=== PATIENT | female | born 1985 | race American Indian/Alaskan Native ===

== ENCOUNTER 2017-04-22 13:22 | Emergency (ER) | payer OTHER, MEDICAID ==
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
[2017-04-22] MEDS ORDERED: MOTRIN PO ONE (18:54)
[2017-04-22 20:43] VITALS: BP 117/82
== END 2017-04-22 19:11 | disposition home or self-care (01) ==
LOC: ED 13:22
DX: S13.4XXA Sprain of ligaments of cervical spine, initial encounter (principal); S39.012A Strain of muscle, fascia and tendon of lower back, initial encounter; F17.210 Nicotine dependence, cigarettes, uncomplicated; V89.2XXA Person injured in unspecified motor-vehicle accident, traffic, initial encounter; Y93.89 Activity, other specified; Y92.89 Other specified places as the place of occurrence of the external cause; Y99.8 Other external cause status
CPT/HCPCS: 99282

== ENCOUNTER 2017-12-09 14:38 | Emergency (ER) | payer MEDICAID, OTHER ==
[2017-12-09 14:47] VITALS: BP 122/86
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
== END 2017-12-09 17:42 | disposition home or self-care (01) ==
LOC: ED 14:38
DX: S39.012A Strain of muscle, fascia and tendon of lower back, initial encounter (principal); S16.1XXA Strain of muscle, fascia and tendon at neck level, initial encounter; V49.49XA Driver injured in collision with other motor vehicles in traffic accident, initial encounter; Y93.89 Activity, other specified; Y92.89 Other specified places as the place of occurrence of the external cause; Y99.8 Other external cause status
CPT/HCPCS: 99282

== ENCOUNTER 2018-09-15 11:39 | Inpatient (IN) | payer MEDICAID ==
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
[2018-09-15 14:15] LABS: Basophils % (Auto) 0.7 % (0.0-1.8); Eosinophils % (Auto) 0.3 % (0.0-4.3); Hematocrit 34.9 % (30.3-42.9); Hemoglobin 10.9 gm/dl (10.1-14.3); Lymphocytes # (Auto) 1.2 K/mm3 (1.2-5.4); Lymphocytes % (Auto) 24.4 % (13.4-35.0); Mean Corpuscular HGB Conc 31 % (30-34); Mean Corpuscular Volume 75 fl (79-97); Monocytes # (Auto) 0.4 K/mm3 (0.0-0.8); Monocytes % (Auto) 7.4 % (0.0-7.3); Red Blood Count 4.68 M/mm3 (3.65-5.03); Red Cell Distribution Width 14.2 % (13.2-15.2)
[2018-09-15 14:21] LABS: Platelet Count 261 K/mm3 (140-440)
[2018-09-15 14:25] LABS: INR 0.96 (0.87-1.13)
[2018-09-15 14:26] LABS: Partial Thromboplastin Time 33.9 Sec. (24.2-36.6)
[2018-09-15 14:36] LABS: Albumin 4.3 g/dL (3.9-5); BUN/Creatinine Ratio 12; Blood Urea Nitrogen 7 mg/dL (7-17); Calcium 9.4 mg/dL (8.4-10.2); Hemolysis Index 9
[2018-09-15 14:39] LABS: Alanine Aminotransferase < 5 units/L (7-56)
--- NOTE | 2018-09-15 14:45 | Cat Scan Report ---
CT HEAD WITHOUT CONTRAST: HISTORY: Headache. TECHNIQUE: Sequential 2.5mm CT images. COMPARISON: none. FINDINGS: Cerebral Parenchyma: Within normal limits. Cerebellum: Within normal limits. Brainstem: Within normal limits. Ventricles: Normal. Sella: Normal. Extra-axial spaces: Normal. Basal Cisterns: Normal. Intracranial Hemorrhage: None. Midline Shift: None. Calvarium: Normal. Sinuses: Normal. Mastoid Air Cells: Normal. Visualized Orbits: Normal. IMPRESSION: Cranial CT scan within normal limits.
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
[2018-09-15] MEDS ORDERED: ASPIRIN PO ONE (20:50)
[2018-09-15] MEDS ORDERED: NORCO 5/325 PO ONE (20:50)
--- NOTE | 2018-09-15 22:06 | XRay Report ---
FINAL REPORT EXAM: XR CHEST ROUTINE 2V HISTORY: Chest Pain upt TECHNIQUE: 2 views of the chest. PRIORS: 07/11/2018 FINDINGS: The cardiomediastinal silhouette appears normal. The lungs are fully expanded and clear. There is no evidence of pneumothorax. The bones and soft tissues are unremarkable. IMPRESSION: No evidence of acute cardiopulmonary disease No evidence of pneumothorax
[2018-09-15] MEDS ORDERED: ZOFRAN IV PRN (22:12)
[2018-09-15] MEDS ORDERED: TYLENOL PO PRN (22:12)
[2018-09-15] MEDS ORDERED: PROVENTIL IH PRN (22:12)
[2018-09-15] MEDS ORDERED: SODIUM CHLORIDE FLUSH SYRINGE 10 ML IV PRN (22:12)
--- NOTE | 2018-09-15 22:18 | History and Physical Report ---
History of Present Illness Date of examination: 09/15/18 History of present illness: 33 year old woman with no medical problem comes to the ER with complaints of chest pain that started Wednesday. Chest pain is left substernal, sharp pain, intermittent for 2 seconds, no radiation , intensity 5/10. Admits to shortness of breath, no diaphoresis, palpitation. Also complaining of left side numbness since Wednesday and the left sided headache. She has been taking ibuprofen for symptoms with some relief. Denies nausea vomiting, photophobia Review of systems Constitutional: no weight loss, chills, fever Ears, eyes, nose, mouth and throat: no nasal congestion, no nasal discharge, no sinus pressure, no vision change, no red eye. Neck: No neck pain or rigidity. Cardiovascular: no palpitations, +chest pain Respiratory: no cough, +shortness of breath Gastrointestinal: no hematochezia, abdominal pain Genitourinary : no frequency , no hematuria Musculoskeletal: no joint swelling or muscle ache Integumentary: no rash, no pruritis Neurological: no parathesias, no focal weakness Endocrine: no cold or heat intolerance, no polyuria or polydipsia Hematologic/Lymphatic: no easy bruising, no easy bleeding, no gland swelling Allergic/Immunologic: no urticaria, no angioedema. PAST MEDICAL HISTORY: History of pneumothorax PAST SURGICAL HISTORY:None FAMILY HISTORY: hypertension SOCIAL HISTORY: Denies alcohol, smoke 1 cigar/day, no drug Medications and Allergies Allergies Allergy/AdvReac Type Severity Reaction Status Date / Time No Known Allergies Allergy Verified 09/15/18 11:40 Home Medications Medication Instructions Recorded Confirmed Last Taken Type Lidocaine/Prilocaine [Emla Cream] 5 gm TP ONCE #1 cream..g. 03/24/14 07/12/18 Unknown Rx Naproxen [Naprosyn TAB] 500 mg PO BID PRN #20 tablet 12/09/17 07/12/18 Unknown Rx Tizanidine HCl [Zanaflex] 2 mg PO TID PRN #15 capsule 12/09/17 07/12/18 Unknown Rx hydrOXYzine PAMOATE [Vistaril] 25 mg PO Q8HR PRN #10 capsule 07/14/18 Unknown Rx Exam - Physical Exam Narrative exam: Gen. appearance: Patient lying in bed in no acute distress HEENT: Normocephalic/atraumatic, pupils equal round reactive to light, extra alkaline movement intact, no scleral icterus, no JVD or thyromegaly or nodule, neck is supple, mucous membrane moist, no erythema or exudate Heart: S1-S2, regular rate and rhythm Lungs: Clear bilateral breathing comfortable Abdomen: Positive bowel sounds, nontender, nondistended, no organomegaly Extremities: No edema, cyanosis, clubbing Neuro:: Oriented 3 , cranial nerves II-12 intact, speech, motor intact Skin: No rash, nodules, warm dry - Constitutional Vitals: Temp Pulse Resp BP Pulse Ox 97.9 F 82 18 133/97 99 09/15/18 20:13 09/15/18 20:13 09/15/18 21:14 09/15/18 20:13 09/15/18 20:50 Results - Labs CBC & Chem 7: 09/15/18 13:50 09/15/18 13:50 Labs: Abnormal lab results 09/15/18 09/15/18 Range/Units 13:50 13:50 MCV 75 L (79-97) fl MCH 23 L (28-32) pg [place] % (Auto) 7.4 H (0.0-7.3) % Creatinine 0.6 L (0.7-1.2) mg/dL ALT < 5 L (7-56) units/L - Imaging and Cardiology Chest x-ray: report reviewed CT Scan - head: report reviewed Assessment and Plan Assessment Atypical chest pain Left-sided numbness with headache Plan Admit to medicine Check cardiac enzymes, echo Consult neurology, cardiology Percocet for pain, DVT prophylaxis
[2018-09-15 23:44] LABS: Creatine Kinase MB < 1.0 ng/mL (0.0-4.0)
[2018-09-16 05:45] LABS: Eosinophils % (Auto) 0.8 % (0.0-4.3); Monocytes # (Auto) 0.6 K/mm3 (0.0-0.8)
[2018-09-16 06:04] LABS: Creatine Kinase MB < 1.0 ng/mL (0.0-4.0)
[2018-09-16 06:05] LABS: Hematocrit 31.7 % (30.3-42.9); Hemoglobin 10.2 gm/dl (10.1-14.3); Mean Corpuscular HGB Conc 32 % (30-34); Mean Corpuscular Volume 74 fl (79-97); Platelet Count 219 K/mm3 (140-440); Red Blood Count 4.29 M/mm3 (3.65-5.03); Red Cell Distribution Width 14.7 % (13.2-15.2)
[2018-09-16 06:06] LABS: Basophils % (Auto) 0.3 % (0.0-1.8); Lymphocytes # (Auto) 1.5 K/mm3 (1.2-5.4); Mean Platelet Volume 8.6 fl (6-12)
[2018-09-16 06:43] LABS: BUN/Creatinine Ratio 13; Blood Urea Nitrogen 8 mg/dL (7-17); Calcium 8.8 mg/dL (8.4-10.2); Hemolysis Index 2
[2018-09-16 08:01] LABS: Bilirubin,Urine NEG (Negative); Blood,Urine NEG (Negative); Color,Urine Yellow (Yellow); Mucus,Urine 2+ /HPF; Protein,Urine <15 mg/dL mg/dL (Negative); Urobilinogen,Urine < 2.0 mg/dL (<2.0)
[2018-09-16 08:03] LABS: Amphetamine Screen,Urine PRESUMPTIVE NEGATIVE; Benzodiazepines Screen,Urine PRESUMPTIVE NEGATIVE; Cocaine Screen,Urine PRESUMPTIVE NEGATIVE; Methadone Screen,Urine PRESUMPTIVE NEGATIVE; Opiate Screen,Urine PRESUMPTIVE NEGATIVE
[2018-09-16 08:15] LABS: Cannabinoid Screen,Urine PRESUMPTIVE POSITIVE
[2018-09-16] MEDS: LOVENOX SUB-Q SCH (10:49)
[2018-09-16] MEDS: SODIUM CHLORIDE FLUSH SYRINGE 10 ML IV SCH ×2 (10:55→22:17)
--- NOTE | 2018-09-16 12:28 | Consultation ---
Addendum entered and electronically signed by GENTRY ARMENDARIZ MD 09/16/18 12:41: Atypical chest pain No CAD risk factors No ischemic findings on ECG Normal CXR Normal LVEF Negative Antony Left sided numbness Headaches No need for further cardiac work-up Original Note: History of Present Illness Consult date: 09/16/18 Consult reason: chest pain History of present illness: Patient is a 33 year old woman who presented with headaches and left sided numbness. No acute intracranial process by head CT. Chest x-ray is negative. In addition, while in the emergency, she complained of intermittent chest pain thus this cardiac consultation. Patient denies prior cardiac history. She denies unusual shortness of breath and palpitations. Chest pain currently resolved. Cardiac enzymes were normal and her ECG is benign. Further evaluation with an echocardiogram reveals a normal left ventricular systolic function, ejection f raction 50-55%. Medications and Allergies Allergies Allergy/AdvReac Type Severity Reaction Status Date / Time No Known Allergies Allergy Verified 09/15/18 11:40 Home Medications Medication Instructions Recorded Confirmed Last Taken Type Lidocaine/Prilocaine [Emla Cream] 5 gm TP ONCE #1 cream..g. 03/24/14 07/12/18 Unknown Rx Naproxen [Naprosyn TAB] 500 mg PO BID PRN #20 tablet 12/09/17 07/12/18 Unknown Rx Tizanidine HCl [Zanaflex] 2 mg PO TID PRN #15 capsule 12/09/17 07/12/18 Unknown Rx hydrOXYzine PAMOATE [Vistaril] 25 mg PO Q8HR PRN #10 capsule 07/14/18 Unknown Rx Active Meds: Active Medications Acetaminophen (Tylenol) 650 mg PO Q4H PRN PRN Reason: Pain MILD(1-3)/Fever >100.5/GR Albuterol (Proventil) 2.5 mg IH Q3HRT PRN PRN Reason: Shortness Of Breath Enoxaparin Sodium (Lovenox) 40 mg SUB-Q QDAY MARIAM Last Admin: 09/16/18 10:49 Dose: 40 mg Documented by: Ondansetron HCl (Zofran) 4 mg IV Q4H PRN PRN Reason: Nausea And Vomiting Oxycodone/Acetaminophen (Percocet 5/325) 1 tab PO Q4H PRN PRN Reason: Pain, Moderate (4-6) Sodium Chloride (Sodium Chloride Flush Syringe 10 Ml) 10 ml IV BID MARIAM Last Admin: 09/16/18 10:55 Dose: 10 ml Documented by: Sodium Chloride (Sodium Chloride Flush Syringe 10 Ml) 10 ml IV PRN PRN PRN Reason: LINE FLUSH Physical Examination Vital Signs Temp Pulse Resp BP Pulse Ox 99.0 F 79 18 130/87 100 09/15/18 12:58 09/15/18 12:58 09/15/18 12:58 09/15/18 12:58 09/15/18 12:58 General appearance: no acute distress HEENT: Positive: PERRL Neck: Positive: trachea midline Cardiac: Positive: Reg Rate and Rhythm Lungs: Positive: Normal Breath Sounds Neuro: Positive: Grossly Intact Results 09/16/18 05:21 09/16/18 05:21 Cardiac Enzymes 09/15/18 09/15/18 09/16/18 Range/Units 13:50 22:52 05:21 AST 13 (5-40) units/L CK-MB (CK-2) < 1.0 < 1.0 (0.0-4.0) ng/mL Coagulation 09/15/18 Range/Units 13:50 PT 13.4 (12.2-14.9) Sec. INR 0.96 (0.87-1.13) APTT 33.9 (24.2-36.6) Sec. CBC 09/15/18 09/16/18 Range/Units 13:50 05:21 WBC 4.8 4.5 (4.5-11.0) K/mm3 RBC 4.68 4.29 (3.65-5.03) M/mm3 Hgb 10.9 10.2 (10.1-14.3) gm/dl Hct 34.9 31.7 (30.3-42.9) % Plt Count 261 219 (140-440) K/mm3 Lymph # 1.2 1.5 (1.2-5.4) K/mm3 [place] # 0.4 0.6 (0.0-0.8) K/mm3 Eos # 0.0 0.0 (0.0-0.4) K/mm3 Baso # 0.0 0.0 (0.0-0.1) K/mm3 Comprehensive Metabolic Panel 09/15/18 09/16/18 Range/Units 13:50 05:21 Sodium 137 140 (137-145) mmol/L Potassium 4.7 4.3 (3.6-5.0) mmol/L Chloride 100.1 105.7 (98-107) mmol/L Carbon Dioxide 25 25 (22-30) mmol/L BUN 7 8 (7-17) mg/dL Creatinine 0.6 L 0.6 L (0.7-1.2) mg/dL Glucose 90 94 (65-100) mg/dL Calcium 9.4 8.8 (8.4-10.2) mg/dL AST 13 (5-40) units/L ALT < 5 L (7-56) units/L Alkaline Phosphatase 52 (35-129) units/L Total Protein 7.6 (6.3-8.2) g/dL Albumin 4.3 (3.9-5) g/dL Assessment and Plan Left sided numbness Headaches Atypical chest pain normal Antony ECG benign Normal LV systolic function, EF 50-55%. No further cardiac workup indicated.
--- NOTE | 2018-09-16 12:33 | Progress Note ---
Assessment and Plan Assessment and plan: 39-year-old female patient was admitted to the emergency room Chest pain and left-sided numbness Cardiology and neurology consults requested, follow evaluations and recommendations --Atypical chest pain; probably noncardiac Serial cardiac enzymes negative, indication acute ST-T changes Cardiology evaluation noted and appreciated Continue current management --GERD; probably the cause of chest pain, Protonix --Left-sided numbness; probably neuropathy, supportive care Follow neurology evaluation and recommendations --Recreational drug use /marijuana; advised to quit --DVT prophylaxis; Lovenox Closely monitor the patient and adjust management as needed Follow-up consults and recommendations Possible discharge in 1-2 days if stable History Interval history: Patient seen and examined medical records reviewed Patient complaints of left-sided numbness And atypical chest pain, Cardiology evaluated the patient Patient feels slightly better since admission Denies chest pain however complains of left-sided numbness Vital signs noted Hospitalist Physical - Constitutional Vitals: Temp Pulse Resp BP Pulse Ox 98.3 F 71 18 116/62 100 09/16/18 07:37 09/16/18 04:19 09/16/18 07:37 09/16/18 07:37 09/16/18 11:20 General appearance: Present: no acute distress, well-nourished - EENT Eyes: Present: PERRL, EOM intact - Neck Neck: Present: supple, normal ROM - Respiratory Respiratory effort: normal Respiratory: bilateral: diminished, negative: rales, rhonchi, wheezing - Cardiovascular Rhythm: regular Heart Sounds: Present: S1 & S2 - Extremities Extremities: no ischemia, No edema - Abdominal General gastrointestinal: soft, non-tender, non-distended, normal bowel sounds - Integumentary Integumentary: Present: clear, warm - Psychiatric Psychiatric: appropriate mood/affect, cooperative - Neurologic Neurologic: CNII-XII intact, moves all extremities Results - Labs CBC & Chem 7: 09/16/18 05:21 09/16/18 05:21 Labs: Laboratory Last Values WBC 4.5 K/mm3 (4.5-11.0) 09/16/18 05:21 RBC 4.29 M/mm3 (3.65-5.03) 09/16/18 05:21 Hgb 10.2 gm/dl (10.1-14.3) 09/16/18 05:21 Hct 31.7 % (30.3-42.9) 09/16/18 05:21 MCV 74 fl (79-97) L 09/16/18 05:21 MCH 24 pg (28-32) L 09/16/18 05:21 MCHC 32 % (30-34) 09/16/18 05:21 RDW 14.7 % (13.2-15.2) 09/16/18 05:21 Plt Count 219 K/mm3 (140-440) 09/16/18 05:21 Lymph % (Auto) 34.0 % (13.4-35.0) 09/16/18 05:21 [place] % (Auto) 13.0 % (0.0-7.3) H 09/16/18 05:21 Eos % (Auto) 0.8 % (0.0-4.3) 09/16/18 05:21 Baso % (Auto) 0.3 % (0.0-1.8) 09/16/18 05:21 Lymph # 1.5 K/mm3 (1.2-5.4) 09/16/18 05:21 [place] # 0.6 K/mm3 (0.0-0.8) 09/16/18 05:21 Eos # 0.0 K/mm3 (0.0-0.4) 09/16/18 05:21 Baso # 0.0 K/mm3 (0.0-0.1) 09/16/18 05:21 Seg Neutrophils % 51.9 % (40.0-70.0) 09/16/18 05:21 Seg Neutrophils # 2.3 K/mm3 (1.8-7.7) 09/16/18 05:21 PT 13.4 Sec. (12.2-14.9) 09/15/18 13:50 INR 0.96 (0.87-1.13) 09/15/18 13:50 APTT 33.9 Sec. (24.2-36.6) 09/15/18 13:50 D-Dimer < 135.00 ng/mlDDU (0-234) 09/15/18 13:50 Sodium 140 mmol/L (137-145) 09/16/18 05:21 Potassium 4.3 mmol/L (3.6-5.0) 09/16/18 05:21 Chloride 105.7 mmol/L (98-107) 09/16/18 05:21 Carbon Dioxide 25 mmol/L (22-30) 09/16/18 05:21 Anion Gap 14 mmol/L 09/16/18 05:21 BUN 8 mg/dL (7-17) 09/16/18 05:21 Creatinine 0.6 mg/dL (0.7-1.2) L 09/16/18 05:21 Estimated GFR > 60 ml/min 09/16/18 05:21 BUN/Creatinine Ratio 13 % 09/16/18 05:21 Glucose 94 mg/dL (65-100) 09/16/18 05:21 Calcium 8.8 mg/dL (8.4-10.2) 09/16/18 05:21 Total Bilirubin 0.30 mg/dL (0.1-1.2) 09/15/18 13:50 AST 13 units/L (5-40) 09/15/18 13:50 ALT < 5 units/L (7-56) L 09/15/18 13:50 Alkaline Phosphatase 52 units/L (35-129) 09/15/18 13:50 Total Creatine Kinase 44 units/L (30-135) 09/16/18 05:21 CK-MB (CK-2) < 1.0 ng/mL (0.0-4.0) 09/16/18 05:21 CK-MB (CK-2) Rel Index 2.2 (0-4) 09/16/18 05:21 Troponin T < 0.010 ng/mL (0.00-0.029) 09/16/18 05:21 Total Protein 7.6 g/dL (6.3-8.2) 09/15/18 13:50 Albumin 4.3 g/dL (3.9-5) 09/15/18 13:50 Albumin/Globulin Ratio 1.3 % 09/15/18 13:50 HCG, Qual Negative (Negative) 09/15/18 13:50 Urine Color Yellow (Yellow) 09/16/18 07:43 Urine Turbidity Clear (Clear) 09/16/18 07:43 Urine pH 6.0 (5.0-7.0) 09/16/18 07:43 Ur Specific [place] 1.015 (1.003-1.030) 09/16/18 07:43 Urine Protein <15 mg/dl mg/dL (Negative) 09/16/18 07:43 Urine Glucose (UA) Neg mg/dL (Negative) 09/16/18 07:43 Urine Ketones Tr mg/dL (Negative) 09/16/18 07:43 Urine Blood Neg (Negative) 09/16/18 07:43 Urine Nitrite Neg (Negative) 09/16/18 07:43 Urine Bilirubin Neg (Negative) 09/16/18 07:43 Urine Urobilinogen < 2.0 mg/dL (<2.0) 09/16/18 07:43 Ur Leukocyte Esterase Neg (Negative) 09/16/18 07:43 Urine WBC (Auto) 1.0 /HPF (0.0-6.0) 09/16/18 07:43 Urine RBC (Auto) 1.0 /HPF (0.0-6.0) 09/16/18 07:43 U Epithel Cells (Auto) < 1.0 /HPF (0-13.0) 09/16/18 07:43 Urine Mucus 2+ /HPF 09/16/18 07:43 Urine Opiates Screen Presumptive negative 09/16/18 07:43 Urine Methadone Screen Presumptive negative 09/16/18 07:43 Ur Barbiturates Screen Presumptive negative 09/16/18 07:43 Ur Phencyclidine Scrn Presumptive negative 09/16/18 07:43 Ur Amphetamines Screen Presumptive negative 09/16/18 07:43 U Benzodiazepines Scrn Presumptive negative 09/16/18 07:43 Urine Cocaine Screen Presumptive negative 09/16/18 07:43 U Marijuana (THC) Screen Presumptive positive 09/16/18 07:43 Drugs of Abuse Note Disclamer 09/16/18 07:43
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
[2018-09-16] MEDS: VITAMIN B-6 PO SCH (18:03)
[2018-09-16] MEDS: PERCOCET 5/325 PO PRN ×2 (18:06→22:16)
--- NOTE | 2018-09-17 09:15 | Progress Note ---
Assessment and Plan - Patient Problems (1) Atypical chest pain Current Visit: Yes Status: Acute Plan to address problem: Noncardiac chest pain has resolved, no further cardiac workup is indicated, we will follow on a when necessary basis. Subjective Date of service: 09/17/18 Interval history: Patient is comfortable, no cardiac complaints. Objective Vital Signs Temp Pulse Resp BP Pulse Ox 09/17/18 08:03 97.0 F L 70 20 98/42 100 09/17/18 08:02 98 09/17/18 05:00 98.0 F 58 L 16 102/67 96 09/16/18 23:50 97.3 F L 58 L 20 107/62 100 09/16/18 23:24 72 09/16/18 21:46 93 09/16/18 19:30 98.8 F 78 16 116/69 100 09/16/18 16:02 98.2 F 18 107/57 09/16/18 15:00 69 09/16/18 11:57 98.4 F 18 113/63 09/16/18 11:20 100 09/16/18 10:00 98 - Physical Examination General: Appears Well, No Apparent Distress HEENT: Positive: PERRL Neck: Positive: trachea midline Cardiac: Positive: Reg Rate and Rhythm Lungs: Positive: clear to auscultation Neuro: Positive: Grossly Intact Abdomen: Positive: Soft Skin: Positive: Clear Extremities: Absent: edema
[2018-09-17] MEDS ORDERED: PROTONIX PO SCH (10:00)
[2018-09-17] MEDS: LOVENOX SUB-Q SCH (10:24)
[2018-09-17] MEDS: VITAMIN B-6 PO SCH (10:24)
[2018-09-17] MEDS: SODIUM CHLORIDE FLUSH SYRINGE 10 ML IV SCH (11:00)
[2018-09-17] MEDS: PERCOCET 5/325 PO PRN (11:40)
--- NOTE | 2018-09-17 13:13 | Discharge Summary ---
Providers - Providers Date of Admission: 09/15/18 22:12 Attending physician: ROSETTA MARTINEZ MD 09/15/18 22:12 Consult to Physician [CONS] Routine Comment: Consulting Provider: STEPHANY BELL Physician Instructions: Reason For Exam: adams, numbness of left side 09/15/18 22:18 Consult to Physician [CONS] Routine Comment: Consulting Provider: OKSANA WOMACK Physician Instructions: Reason For Exam: cp Primary care physician: BREONNA BOWMAN Hospitalization Condition: Fair Hospital course: 39-year-old female patient was admitted to the emergency room Chest pain and left-sided numbness She was seen by cardiology, stress test was negative. No further cardiac work up was recommended -She was seen by GI, who recommended PPI -Her pain what was likely multifactorial, due to cervical disc and radiculopathy and GERD -Per neurology recommendation, patient is being discharged with Medrol Dosepak, PPI for GI protection and vitamin B6 -She was counseled about marijuana cessation Diagnoses Atypical chest pain, most likely musculoskeletal leads all Cervical radiculopathy GERD Marijuana abuse Disposition: DC- TO HOME OR SELFCARE Time spent for discharge: 35 minutes Core Measure Documentation - Palliative Care Palliative Care/ Comfort Measures: Not Applicable - Core Measures Any of the following diagnoses?: none Exam - Constitutional Vitals: Temp Pulse Resp BP Pulse Ox 97.2 F L 60 16 113/79 97 09/17/18 11:00 09/17/18 11:00 09/17/18 11:00 09/17/18 11:00 09/17/18 11:00 General appearance: Present: no acute distress, well-nourished - EENT Eyes: Present: PERRL ENT: hearing intact, clear oral mucosa - Neck Neck: Present: supple, normal ROM - Respiratory Respiratory effort: normal Respiratory: bilateral: CTA - Cardiovascular Heart Sounds: Present: S1 & S2. Absent: rub, click - Extremities Extremities: pulses symmetrical, No edema Peripheral Pulses: within normal limits - Abdominal General gastrointestinal: Present: soft, non-tender, non-distended, normal bowel sounds Female genitourinary: Present: normal - Integumentary Integumentary: Present: clear, warm, dry - Musculoskeletal Musculoskeletal: gait normal, strength equal bilaterally - Psychiatric Psychiatric: appropriate mood/affect, intact judgment & insight - Neurologic Neurologic: CNII-XII intact, moves all extremities Plan Follow up with: BREONNA BOWMAN MD [Primary Care Provider] - 3-5 Days Forms: Work/School Release Form Prescriptions: methylPREDNISolone [Medrol Dose Matthew] 4 mg PO DAILY #1 pack RX: oxyCODONE /ACETAMINOPHEN [Percocet 5/325 mg] 1 tab PO Q4H PRN #14 tablet PRN Reason: Pain, Moderate (4-6) RX: Pantoprazole [Protonix TAB] 40 mg PO QDAY #30 tablet RX: Pyridoxine [Vitamin B-6 50MG TAB] 200 mg PO QDAY 60 Days tablet
[2018-09-17 17:51] VITALS: BP 108/75
== END 2018-09-17 18:27 | disposition home or self-care (01) | DRG 392 ==
LOC: ED 11:39 → 4A 22:12
PROVIDERS: ADMIT Internal Medicine; ATTEND Internal Medicine
DX: K21.9 Gastro-esophageal reflux disease without esophagitis (principal); R20.2 Paresthesia of skin; G62.9 Polyneuropathy, unspecified; F12.90 Cannabis use, unspecified, uncomplicated; M54.2 Cervicalgia; G43.009 Migraine without aura, not intractable, without status migrainosus; F17.210 Nicotine dependence, cigarettes, uncomplicated; R29.818 Other symptoms and signs involving the nervous system; Z71.51 Drug abuse counseling and surveillance of drug abuser; Z79.899 Other long term (current) drug therapy; Z82.49 Family history of ischemic heart disease and other diseases of the circulatory system
CPT/HCPCS: 36415; 70450; 71046; 80048; 80053; 80307; 81001; 82550; 82553; 84484; 84703; 85025; 85379; 85610; 85730; 93005; 93010; 93306; G0378; J1650